=== PATIENT | female | born 1985 | race African-American/Black ===

== ENCOUNTER 2025-03-15 20:49 | Inpatient (IN) | payer OTHER ==
[2025-03-15] MEDS ORDERED: Furosemide 40 MG (4 mL) VIAL ONE (21:41)
[2025-03-15 22:43] LABS: Acetaminophen Less than 10 mcg/mL (Less than 10); Salicylate Less than 8.0 mg/dL (Less than 8.0)
[2025-03-15 22:50] LABS: Troponin I 0.033 ng/mL (< 0.028)
[2025-03-15] MEDS ORDERED: hydrALAZINE 20 MG/ML VIAL SLOW IVP PRN (23:07)
[2025-03-15] MEDS ORDERED: Acetaminophen 325 MG TAB ONE (23:45)
[2025-03-16 00:25] LABS: Cocaine Metabolite Screen Negative (Negative); THC/Cannabinoid Screen Negative (Negative); Tricyclic Screen Negative (Negative)
[2025-03-16] MEDS: Ondansetron PF 4 MG/2 ML Vial IVP PRN (01:07)
[2025-03-16] MEDS: Magnesium Sulfate 20 gm/500 ml 20 GM/500 ML BAG IVPB SCH (01:09)
[2025-03-16 01:18] VITALS: BMI 33.5
[2025-03-16 04:02] LABS: #Basophils 0.07 10x3/uL (0.0-0.2); #Eosinophils 0.06 10x3/uL (0.0-0.5); #Monocytes 0.60 10x3/uL (0.0-1.1); #Neutrophils 5.32 10x3/uL (1.5-8.4); %Basophils 1.0 % (0.0-2.0); %Eosinophils 0.8 % (0.0-6.0); %Lymphocytes 16.9 % (18.0-47.0); %Monocytes 8.2 % (0.0-10.0); %Neutrophils 72.7 % (40.0-75.0); Hematocrit 37.2 % (34.9-44.5); Hemoglobin 11.7 g/dL (12.0-15.5); Mean Corpuscular Hemoglobin 27.4 pg (27.0-33.0); Mean Corpuscular Volume 87.1 fL (81.6-98.3); Platelet Count 543 10x3/uL (150-450); Red Blood Cell (RBC) Count 4.27 10x6/uL (3.90-5.03); White Blood Cell (WBC) Count 7.32 10x3/uL (3.5-10.5)
[2025-03-16 04:19] LABS: ALT (SGPT) 12 U/L (Less than 34); AST (SGOT) 13 U/L (11-34); Albumin 3.7 g/dL (3.1-4.5); Alkaline Phosphatase 63 U/L (40-110); Anion Gap 13 mmol/L (10-20); BUN (Urea Nitrogen) 5 mg/dL (7.0-18.7); Bilirubin, Total 0.3 mg/dL (0.3-1.2); Calc. Creatinine Clearance 182 mL/min (70-130); Calcium 8.1 mg/dL (7.8-10.44); Carbon Dioxide 24 mmol/L (22-29); Cardiac Risk 4.0 (Less than 4.5); Chloride 105 mmol/L (98-107); Cholesterol 178 mg/dl (< 200 Desired); Globulin 3.3 g/dL (2.4-3.5); Glucose 138 mg/dL (70-105); HDL Cholesterol 44 mg/dL (>60 Neg Risk); LDL Cholesterol, Calculated 118 mg/dL; Potassium 4.0 mmol/L (3.5-5.1); Sodium 138 mmol/L (136-145); Triglycerides 81 mg/dL (Less than 150)
[2025-03-16 04:24] LABS: Troponin I 0.040 ng/mL (< 0.028)
[2025-03-16 04:29] LABS: Magnesium 6.5 mg/dL (1.6-2.6)
[2025-03-16] MEDS: Furosemide 100 MG (10 mL) VIAL SLOW IVP SCH (04:52)
[2025-03-16] MEDS: Acetaminophen 325 MG TAB PO PRN (04:55)
[2025-03-16] MEDS: metFORMIN 500 MG TAB PO SCH (09:15)
[2025-03-16] MEDS: Enoxaparin 40 MG (0.4 mL) SYRINGE SC SCH (09:15)
[2025-03-16] MEDS: Mupirocin 1 GM TUBE TP SCH (09:15)
[2025-03-16] MEDS: diphenhydrAMINE 50 MG/ML VIAL IVP SCH (10:22)
[2025-03-16] MEDS: Metoclopramide HCl 10 MG (2 mL) VIAL IVP SCH (10:23)
[2025-03-16] MEDS: Sacubitril 24MG/Valsartan 26 MG TAB PO SCH (10:25)
[2025-03-16] MEDS: Spironolactone 25 MG TAB PO SCH (10:25)
[2025-03-16 10:45] LABS: Magnesium 4.5 mg/dL (1.6-2.6)
[2025-03-16 11:08] LABS: Ferritin 78.84 ng/mL (10-291); HIV (1/2) Antibody/Antigen Non-Reactive (NonReactive); HIV 1/2 INDEX 0.15 S/CO (<1.00)
[2025-03-16 17:06] LABS: Magnesium 5.7 mg/dL (1.6-2.6)
[2025-03-16] MEDS: Fioricet 325/50/40 mg Tablet PO PRN (17:14)
[2025-03-16] MEDS: Carvedilol 12.5 MG TAB PO SCH (17:16)
[2025-03-16 18:10] LABS: HBSAB Concentration Less than 8.00 mIU/mL
[2025-03-16 18:11] LABS: Hep A IgM AB NONREACTIVE (NonReactive); Hep A IgM S/CO 0.25 S/CO (0-0.79); Hep B Core Total Ab NONREACTIVE (NonReactive); Hep B Core Total Index 0.10 S/CO (0-0.79); Hep C IgG Ab NONREACTIVE S/CO (NonReactive); Hep C Index 0.10 S/CO (0-0.79)
[2025-03-16 18:46] LABS: Hep B Surf Ag NONREACTIVE S/CO (NonReactive)
[2025-03-16 23:08] LABS: Magnesium 5.3 mg/dL (1.6-2.6)
[2025-03-17 08:40] LABS: #Basophils 0.06 10x3/uL (0.0-0.2); #Eosinophils 0.44 10x3/uL (0.0-0.5); #Monocytes 0.51 10x3/uL (0.0-1.1); #Neutrophils 3.49 10x3/uL (1.5-8.4); %Basophils 0.9 % (0.0-2.0); %Eosinophils 6.4 % (0.0-6.0); %Lymphocytes 34.1 % (18.0-47.0); %Monocytes 7.5 % (0.0-10.0); %Neutrophils 51.0 % (40.0-75.0); Hematocrit 41.0 % (34.9-44.5); Hemoglobin 12.7 g/dL (12.0-15.5); Mean Corpuscular Hemoglobin 27.7 pg (27.0-33.0); Mean Corpuscular Volume 89.3 fL (81.6-98.3); Platelet Count 538 10x3/uL (150-450); Red Blood Cell (RBC) Count 4.59 10x6/uL (3.90-5.03); White Blood Cell (WBC) Count 6.84 10x3/uL (3.5-10.5)
[2025-03-17 08:52] LABS: Anion Gap 15 mmol/L (10-20); BUN (Urea Nitrogen) 7 mg/dL (7.0-18.7); Calc. Creatinine Clearance 192 mL/min (70-130); Calcium 7.3 mg/dL (7.8-10.44); Carbon Dioxide 21 mmol/L (22-29); Chloride 106 mmol/L (98-107); Glucose 152 mg/dL (70-105); Potassium 4.0 mmol/L (3.5-5.1); Sodium 138 mmol/L (136-145)
[2025-03-17] MEDS: Spironolactone 25 MG TAB PO SCH (09:09)
[2025-03-17 12:05] LABS: ANA Symphony (Qualitative) Negative (Negative); ANA Symphony (Quantitative) 0.4 Ratio (< 0.7 Negative); dsDNA IgG Antibody 1.0 IU/mL (<10 Negative)
[2025-03-17 12:24] VITALS: TEMP 98.2
[2025-03-17] MEDS: diphenhydrAMINE 25 MG CAP PO SCH (14:24)
[2025-03-17] MEDS: Furosemide 20 MG (2 mL) VIAL SLOW IVP SCH (14:24)
[2025-03-17 17:22] VITALS: BP 132/81
[2025-03-18] MEDS ORDERED: Furosemide 20 MG TAB PO SCH (09:00)
== END 2025-03-17 18:54 | disposition home or self-care (01) | DRG 776 ==
LOC: CSHERS 20:49 → CSHICU 23:07
PROVIDERS: ADMIT Family Medicine; ATTEND Internal Medicine
DX: O90.3 Peripartum cardiomyopathy (principal); J96.01 Acute respiratory failure with hypoxia; I42.0 Dilated cardiomyopathy; O14.95 Unspecified pre-eclampsia, complicating the puerperium; O24.439 Gestational diabetes mellitus in the puerperium, unspecified control; O99.53 Diseases of the respiratory system complicating the puerperium; Z79.4 Long term (current) use of insulin; Z79.899 Other long term (current) drug therapy
CPT/HCPCS: 36415; 36416; 71046; 80048; 80053; 80061; 80306; 80307; 82570; 82728; 83735; 83880; 84156; 84443; 84484; 85025; 86038; 86140; 86225; 86704; 86706; 86709; 86803; 87340; 87389; 93005; 93010; 93306; 94760; 94762; 96374; J1200; J1650; J1940; J2405; J2765; J3475